=== PATIENT | female | born 1985 | race Caucasian/White ===

== ENCOUNTER → 2021-10-03 | Outpatient (CLI) | payer OTHER ==
[2021-10-03 18:10] LABS: Basophils # (A) 0.06 X 10*3/uL (0.00-0.10); Basophils % (A) 1.3 %; Eosinophils # (A) 0.24 X 10*3/uL (0.04-0.35); Eosinophils % (A) 5.1 %; HGB 14.9 g/dL (12.0-15.0); Immature Grans, Automated 0.2 %; Lymphocytes # (A) 1.82 X 10*3/uL (0.90-5.00); Lymphocytes % (A) 38.6 %; MCH 30.2 pg (27.0-32.0); MCHC 33.1 g/dL (32.0-37.0); MCV 91.3 fL (80.0-97.0); Mean Platelet Volume 10.1 fL (9.5-12.2); Monocytes # (A) 0.44 X 10*3/uL (0.20-1.00); Monocytes % (A) 9.3 %; NRBC Per 100 WBC 0 /100 WBCS (0.0-0.0); Neutrophils # (A) 2.14 X 10*3/uL (1.80-7.70); Neutrophils % (A) 45.5 %; Platelet Count 272 X 10*3/uL (140-440); RBC 4.93 X 10*6/uL (4.10-5.20); RDW 12.3 % (11.5-14.5); WBC 4.71 X 10*3/uL (4.50-10.00)
[2021-10-03 18:29] LABS: ALT 44 U/L (8-44); AST 50 U/L (13-35); African American GFR (CKD) 115.8 (60.0-200.0); Albumin 4.4 g/dL (3.8-4.9); Albumin/Globulin Ratio 1.91 (1.60-3.17); Alkaline Phosphatase 75 U/L (41-126); BUN/Creat Ratio 10.25 Ratio (12.00-20.00); Blood Urea Nitrogen 7.8 mg/dL (9.0-27.0); Calcium 9.6 mg/dL (8.7-10.3); Carbon Dioxide 25.3 mmol/L (20.0-27.5); Chloride 104 mmol/L (96-109); Chol/HDL Ratio 4.21 Ratio; Globulin 2.3 g/dL (1.6-3.3); Glucose 99 mg/dL (70-110); LDL Cholesterol,Calculated 112.9 mg/dL (0.0-131.0); Non-African American GFR(CKD) 99.9 (60.0-200.0); Potassium 3.9 mmol/L (3.5-5.5); Sodium 139 mmol/L (135-145); Total Protein 6.7 g/dL (6.2-8.2)
[2021-10-03 18:32] LABS: Hepatitis C IgG Antibody Nonreactive (Nonreactive); Thyroid Peroxidase Antibodies 11.4 U/mL (0.0-33.0)
== END | disposition home or self-care (01) ==
LOC: LABWHC1 13:38
PROVIDERS: ATTEND Family Medicine
DX: Z00.00 Encounter for general adult medical examination without abnormal findings (principal); Z11.59 Encounter for screening for other viral diseases; E04.9 Nontoxic goiter, unspecified
CPT/HCPCS: 36415; 80053; 80061; 84439; 84443; 85025; 86376; 86800; 86803

== ENCOUNTER → 2021-10-17 | Outpatient (CLI) | payer OTHER ==
--- NOTE | 2021-10-18 07:16 | US ---
EXAMINATION TYPE: US thyroid st tissue head/neck DATE OF EXAM: 10/17/2021 COMPARISON: NONE CLINICAL HISTORY: E04.9 NONTOXIC GOITER. abn labs, first US GLAND SIZE: Right Lobe: 4.2 x 1.6 x 1.9 cm Overall Parenchyma: heterogenous Left Lobe: 3.9 x 1.2 x 1.2 cm Overall Parenchyma: homogeneous Isthmus Thickness: 0.5 cm NODULES RIGHT: # of nodules measured on right: 2 1. 0.5 X 0.5 x 0.5 cm, lower , solid or almost completely solid, hyperechoic nodule, which is wider than tall, with smooth margins, without echogenic foci. 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 0.6 X 0.7 x 0.6 cm, upper , solid or almost completely solid, hyperechoic nodule, which is wider than tall, with smooth margins, without echogenic foci. Prior size:COMPUTING SYSTEMS MECHANIC LEFT: # of nodules measured on left: 0 ISTHMUS: # of nodules measured in the isthmus: 0 Bilateral neck scanned, no evidence of lymphadenopathy. IMPRESSION: Nonspecific glandular heterogeneity and subcentimeter nodularity.
--- NOTE | 2021-10-19 07:32 | MM ---
Reason for Exam: Screening (asymptomatic). Baseline mammogram. Patient History: Menarche at age 12. First Full-Term at age 20. Left ovary removed at age 35. Right ovary removed at age 35. Hysterectomy at age 35. Maternal grandmother had breast cancer at or over age 50. Maternal grandmother had breast cancer. Maternal aunt had breast cancer at or over age 50. Last menstrual period: Risk Values: Ginette 5 year model risk: 0.4%. NCI Lifetime model risk: 9.2%. Prior Study Comparison: Patient's first Mammogram. Tissue Density: The breast tissue is heterogeneously dense. This may lower the sensitivity of mammography. Findings: Analyzed By CAD. There is no suspicious group of microcalcifications or new suspicious mass in either breast. Overall Assessment: Negative, BI-RAD 1 Management: Screening Mammogram of both breasts in 1 year. A clinical breast exam by your physician is recommended on an annual basis and results should be correlated with mammographic findings. Electronically signed and approved by: Michel Ruiz D.O.
== END | disposition home or self-care (01) ==
LOC: RADMAMWWP 15:55
PROVIDERS: ATTEND Family Medicine
DX: Z12.31 Encounter for screening mammogram for malignant neoplasm of breast (principal); E04.2 Nontoxic multinodular goiter; Z80.3 Family history of malignant neoplasm of breast
CPT/HCPCS: 76536; 77067

== ENCOUNTER → 2022-01-11 | Outpatient (CLI) | payer OTHER ==
[2022-01-11 18:44] LABS: T4, Free (Free Thyroxine) 1.33 ng/dL (0.800-1.800)
== END | disposition home or self-care (01) ==
LOC: LABWHC1 10:02
PROVIDERS: ATTEND Family Medicine
DX: E04.2 Nontoxic multinodular goiter (principal)
CPT/HCPCS: 36415; 84432; 84439; 84443

== ENCOUNTER → 2022-07-29 | Outpatient (CLI) | payer OTHER ==
[2022-07-29 21:28] LABS: Basophils # (A) 0.07 X 10*3/uL (0.00-0.10); Basophils % (A) 1.3 %; Eosinophils % (A) 3.9 %; HCT 45.2 % (37.2-46.3); Immature Grans, Automated 0.2 %; Lymphocytes # (A) 1.83 X 10*3/uL (0.90-5.00); Lymphocytes % (A) 35.3 %; MCH 30.7 pg (27.0-32.0); MCHC 33.2 g/dL (32.0-37.0); MCV 92.6 fL (80.0-97.0); Mean Platelet Volume 10.2 fL (9.5-12.2); Monocytes # (A) 0.54 X 10*3/uL (0.20-1.00); Monocytes % (A) 10.4 %; NRBC Per 100 WBC 0 /100 WBCS (0.0-0.0); Neutrophils # (A) 2.54 X 10*3/uL (1.80-7.70); Neutrophils % (A) 48.9 %; Platelet Count 271 X 10*3/uL (140-440); RBC 4.88 X 10*6/uL (4.10-5.20); RDW 12.5 % (11.5-14.5); WBC 5.19 X 10*3/uL (4.50-10.00)
[2022-07-29 23:30] LABS: Chol/HDL Ratio 3.78 Ratio; LDL Cholesterol,Calculated 117.6 mg/dL (0.0-131.0)
[2022-07-30 10:16] LABS: African American GFR (CKD) 108.4 (60.0-200.0); Albumin/Globulin Ratio 2.11 (1.60-3.17); Anion Gap 11.9 mmol/L (10.00-18.00); Calcium 9.4 mg/dL (8.7-10.3); Carbon Dioxide 25.1 mmol/L (20.0-27.5); Globulin 1.9 g/dL (1.6-3.3); Non-African American GFR(CKD) 93.5 (60.0-200.0); Potassium 4.2 mmol/L (3.5-5.5); Total Bilirubin 0.8 mg/dL (0.30-1.20); Total Protein 5.9 g/dL (6.2-8.2)
== END | disposition home or self-care (01) ==
LOC: LABWHC1 12:31
PROVIDERS: ATTEND Family Medicine
DX: E03.9 Hypothyroidism, unspecified (principal); E78.5 Hyperlipidemia, unspecified
CPT/HCPCS: 36415; 80053; 80061; 84439; 84443; 84481; 85025

== ENCOUNTER → 2022-08-15 | Outpatient (CLI) | payer OTHER ==
--- NOTE | 2022-08-15 14:51 | CT ---
EXAMINATION TYPE: CT abdomen pelvis w con DATE OF EXAM: 08/15/2022 HISTORY: RLQ pain CT DLP: 1744mGycm Automated Exposure Control for Dose Reduction was Utilized. CONTRAST: CT scan of the abdomen and pelvis is performed with oral and with IV Contrast, patient injected with 100 mL of Isovue 300. COMPARISON: None. FINDINGS: LUNG BASES: No significant abnormality is appreciated. LIVER/GB: Cholecystectomy clips are present. The liver is diffusely low dense consistent with fatty i nfiltrative hepatocellular disease. PANCREAS: No significant abnormality is seen. SPLEEN: No significant abnormality is seen. ADRENALS: No significant abnormality is seen. KIDNEYS: Symmetric cortical medullary uptake and excretion without hydronephrosis seen bilaterally. BOWEL: The oral contrast reaches level of the hepatic flexure making evaluation of distal bowel sligh tly suboptimal. No suspicious small or large bowel dilatation. Mild to moderate wall thickening in th e right colon extends into the hepatic flexure and into the and majority of the transverse colon. Herrera e areas of mild wall thickening along the left colon. No significant surrounding fat stranding. Appen freddy is small in size extending posteriorly from the base of the cecum. No surrounding fat stranding i s seen. UTERUS/ADNEXA: Uterus is surgically absent. LYMPH NODES: No greater than 1cm abdominal or pelvic lymph nodes are appreciated. OSSEOUS STRUCTURES: Transitional type L6 vertebra. OTHER: No significant additional abnormality is seen. IMPRESSION: No CT evidence for acute appendicitis. Possible mild uncomplicated colitis, correlate cli nically otherwise no acute findings are evident.
== END | disposition home or self-care (01) ==
LOC: RADCTMAIN 12:37
PROVIDERS: ATTEND Family Medicine
DX: R10.31 Right lower quadrant pain (principal)
CPT/HCPCS: 74177; Q9967

== ENCOUNTER → 2022-11-06 | Outpatient (CLI) | payer OTHER ==
--- NOTE | 2022-11-06 12:38 | US ---
EXAMINATION TYPE: US thyroid st tissue head/neck DATE OF EXAM: 11/06/2022 COMPARISON: US 10/17/2021 CLINICAL INDICATION: Female, 37 years old with history of E04.2 NONTOXIC MULTINODULAR GOITER; on thyr oid meds x 1 yr; follow up on known right nodules GLAND SIZE: Right Lobe: 4.1 x 1.5 x 1.3 cm Overall Parenchyma: homogenous Left Lobe: 3.6 x 1.3 x 1.2 cm Overall Parenchyma: homogeneous Isthmus Thickness: 0.5 cm NODULES RIGHT: # of nodules measured on right: 1 1. 0.5 X 0.4 x 0.4 cm echogenic solid nodule at the lateral lower pole. TR 3. Prior size: 0.6 x 0.5 x 0.5 cm The other hyperechoic nodule within the upper right thyroid lobe is not definitively visualized on to day's exam. LEFT: # of nodules measured on left: 0 ISTHMUS: # of nodules measured in the isthmus: 0 Bilateral neck scanned, no evidence of lymphadenopathy. IMPRESSION: Stable 0.5 cm right lower pole TR 3 nodule. Other hyperechoic right upper pole nodules nonvisualizati on exam. No new or enlarging nodules. No follow-up is recommended based on ACR TI-RADS.
== END | disposition home or self-care (01) ==
LOC: RADUSWWP 12:09
PROVIDERS: ATTEND Family Medicine
DX: E04.2 Nontoxic multinodular goiter (principal)
CPT/HCPCS: 76536

== ENCOUNTER → 2023-03-26 | Outpatient (CLI) | payer OTHER ==
--- NOTE | 2023-03-26 13:21 | XR ---
EXAMINATION TYPE: XR foot complete RT DATE OF EXAM: 03/26/2023 CLINICAL HISTORY: pain TECHNIQUE: Frontal, lateral and oblique images of the right foot are obtained. COMPARISON: None. FINDINGS: There is no acute fracture/dislocation evident. The joint spaces appear within normal saravia its. The overlying soft tissue appears unremarkable. IMPRESSION: There is no acute fracture or dislocation. ICD 10 NO FRACTURE, INITIAL EVALUATION
== END | disposition home or self-care (01) ==
LOC: RADXRMAIN 12:51
PROVIDERS: ATTEND Nurse Practitioner Family
DX: M79.671 Pain in right foot (principal)

== ENCOUNTER → 2024-10-22 | Outpatient (CLI) | payer OTHER ==
--- NOTE | 2024-10-25 07:37 | MM ---
Reason for Exam: Screening (asymptomatic). Last mammogram was performed 3 year(s) and 0 month(s) ago. Patient History: Menarche at age 12. First Full-Term at age 20. Left ovary removed at age 35. Right ovary removed at age 35. Hysterectomy at age 35. Maternal grandmother had breast cancer at or over age 50. Maternal grandmother had breast cancer. Maternal aunt had breast cancer at or over age 50. Risk Values: Ginette 5 year model risk: 0.5%. NCI Lifetime model risk: 9.0%. Prior Study Comparison: 10/17/2021 Bilateral MG screening mammo w CAD, [facility]. Tissue Density: The breasts are heterogeneously dense, which may obscure small masses. Findings: Analyzed By CAD. Right breast: There is no suspicious group of microcalcifications or new suspicious mass. Left breast: There is no suspicious group of microcalcifications or new suspicious mass. Overall Assessment: Benign, BI-RAD 2 Management: Screening Mammogram of both breasts in [address] [facility] will attempt to contact patient to return for supplemental views and ultrasound if indicated. Patient should continue monthly self-breast exams. A clinical breast exam by your physician is recommended on an annual basis. This exam should not preclude additional follow-up of suspicious palpable abnormalities. Note on Ginette scores and lifetime risk: 1. A Ginette score greater than 3% is considered moderate risk. If this is the case, consider specialist referral to assess eligibility for a risk reducing agent. 2. If overall lifetime risk for the development of breast cancer is 20% or higher, the patient may qualify for future screening with alternating mammogram and breast MRI. [facility], , 10/25/2024 7:34 AM. Electronically signed and approved by: Raoul Auguste DO
== END | disposition home or self-care (01) ==
LOC: RADMAMWWP 15:26
PROVIDERS: ATTEND Family Medicine
DX: Z12.31 Encounter for screening mammogram for malignant neoplasm of breast (principal); R92.333 Mammographic heterogeneous density, bilateral breasts; Z80.3 Family history of malignant neoplasm of breast
CPT/HCPCS: 77067

== ENCOUNTER → 2024-10-22 | Outpatient (CLI) | payer OTHER ==
--- NOTE | 2024-10-22 16:07 | US ---
EXAMINATION TYPE: US thyroid st tissue head/neck DATE OF EXAM: 10/22/2024 COMPARISON: Us 11/06/2022 CLINICAL INDICATION: Female, 39 years old with history of E04.1 THYROID NODULE; Nodule. Patient takes levothyroxine. TECHNIQUE: Grayscale and color Doppler imaging of the thyroid gland. FINDINGS: GLAND SIZE: Right Lobe: 4.5 x 1.6 x 1.3 cm Overall Parenchyma: homogeneous Left Lobe: 4.4 x 1.4 x 1.4 cm Overall Parenchyma: homogeneous Isthmus Thickness: 0.39 cm NODULES RIGHT: # of nodules measured on right: 1 1. 0.9 X 0.7 x 0.6 cm, lower lateral, solid or almost completely solid, hyperechoic TR3 nodule, whi ch is wider than tall, with smooth margins, without echogenic foci Prior size: 0.5 x 0.4 x 0.4 cm LEFT: # of nodules measured on left: 0 ISTHMUS: # of nodules measured in the isthmus: 0 Bilateral neck scanned, no evidence of lymphadenopathy. IMPRESSION: Solitary 9 mm TR3 nodule in the right lobe has increased from 5 mm previously. Given the interval inc rease, consider a precautionary one-year follow-up. No other discrete nodules are seen. . TR 3 thyroid nodules have a 4.8 % risk of malignancy. [facility], , 10/22/2024 4:05 PM
== END | disposition home or self-care (01) ==
LOC: RADUSWWP 15:24
PROVIDERS: ATTEND Family Medicine
DX: E04.1 Nontoxic single thyroid nodule (principal)
CPT/HCPCS: 76536